=== PATIENT | male | born 1955 | race Caucasian/White ===

== ENCOUNTER 2018-09-18 21:32 | Emergency (ER) | payer OTHER ==
[2018-09-18] MEDS ORDERED: methylPREDNISolone Sodium Succinate 125 MG/2 ML SDV ONE (22:13)
[2018-09-18] MEDS ORDERED: methylPREDNISolone Acetate 80 MG/ML SDV IM ONE (22:21)
--- NOTE | 2018-09-18 22:28 | EDM.PDOC ---
ED HPI GENERAL MEDICAL PROBLEM - General Chief Complaint: General Stated Complaint: lip swelling Time Seen by Provider: 09/18/18 22:15 Source of Information: Reports: Patient History Limitations: Reports: No Limitations - History of Present Illness INITIAL COMMENTS - FREE TEXT/NARRATIVE: Subhash is a 63 year old male who presents to the ED with c/o swelling to his upper lip. He reports first noticed the swelling around 1500 today. Reports it has worsened since then. He reports his lip just feels "tight." Reports he took Benadryl around 1900 and has not noticed any improvement, prompting ED visit. He denies any injury to area. Denies any new foods/drinks/etc. He does report he has been on Amoxicillin for the past ~ 7 days. Has not had issues with Amoxicillin use in the past. Denies any other issues or complaints. Denies any chest pain, shortness of breath, rash. Onset: Today, Sudden Duration: Constant Location: Reports: Face Associated Symptoms: Reports: No Other Symptoms. Denies: Confusion, Chest Pain , Cough, cough w sputum, Diaphoresis, Fever/Chills, Headaches, Loss of Appetite , Malaise, Nausea/Vomiting, Rash, Seizure, Shortness of Breath, Syncope, Weakness - Related Data Allergies Allergy/AdvReac Type Severity Reaction Status Date / Time No Known Allergies Allergy Verified 09/18/18 21:38 Home Meds: Home Meds Lisinopril/Hydrochlorothiazide [Lisinopril-Hctz 10-12.5 mg Tab] 1 tab PO QAM [History] Meloxicam [Mobic] 7.5 mg PO DAILY 09/18/18 [History] Simvastatin [Zocor] 40 mg PO BEDTIME 09/18/18 [History] Past Medical History Cardiovascular History: Reports: High Cholesterol, Hypertension Oncologic (Cancer) History: Reports: Prostate - Past Surgical History Male Surgical History: Reports: Prostatectomy Musculoskeletal Surgical History: Reports: Other (See Below) Other Musculoskeletal Surgeries/Procedures:: rotator cuff Oncologic Surgical History: Reports: None Social & Family History - Family History Family Medical History: Noncontributory - Tobacco Use Smoking Status *Q: Never Smoker Second Hand Smoke Exposure: No - Caffeine Use Caffeine Use: Reports: None - Recreational Drug Use Recreational Drug Use: No ED ROS GENERAL - Review of Systems Review Of Systems: ROS reveals no pertinent complaints other than HPI. ED EXAM, GENERAL - Physical Exam Exam: See Below Exam Limited By: No Limitations General Appearance: Alert, WD/WN, No Apparent Distress Eye Exam: Bilateral Eye: EOMI, PERRL Nose: Normal Inspection, Normal Mucosa, No Blood Throat/Mouth: Normal Teeth, Normal Gums, Normal Oropharynx, Normal Voice, No Airway Compromise, Other (moderate swelling to upper lip) Head: Facial Swelling (mild swelling to upper lip) Neck: Normal Inspection, Supple, Non-Tender, Full Range of Motion Respiratory/Chest: No Respiratory Distress, Lungs Clear, Normal Breath Sounds, No Accessory Muscle Use, Chest Non-Tender Cardiovascular: Normal Peripheral Pulses, Regular Rate, Rhythm, No Edema, No Gallop, No JVD, No Murmur, No Rub Neurological: Alert, Oriented, CN II-XII Intact, Normal Cognition, Normal Gait, Normal Reflexes, No Motor/Sensory Deficits Psychiatric: Normal Affect, Normal Mood Skin Exam: Warm, Dry, Intact, Normal Color, No Rash Lymphatic: No Adenopathy Course - Vital Signs Last Recorded V/S: Last Vital Signs Temp 96.7 F 09/18/18 21:41 Pulse 66 09/18/18 21:41 Resp 18 09/18/18 21:41 BP 168/97 H 09/18/18 21:41 Pulse Ox 96 09/18/18 21:41 - Orders/Labs/Meds Meds: Medications Discontinued Medications Generic Name Dose Route Start Last Admin Trade Name Wilfrido PRN Reason Stop Dose Admin Methylprednisolone Acetate 80 mg 09/18/18 22:21 Depo-Medrol IM 09/18/18 22:22 ONETIME ONE Departure - Departure Time of Disposition: 22:25 Disposition: Home, Self-Care 01 Condition: Good Clinical Impression: Angioedema of lips Qualifiers: Encounter type: initial encounter Qualified Code(s): T78.3XXA - Angioneurotic edema, initial encounter - Discharge Information *PRESCRIPTION DRUG MONITORING PROGRAM REVIEWED*: Not Applicable *COPY OF PRESCRIPTION DRUG MONITORING REPORT IN PATIENT JOSE MIGUEL: Not Applicable Instructions: Angioedema, [id number] Additional Instructions: 1) Benadryl 25-50 mg every 6 hours as needed 2) Zyrtec or Claritin daily 3) Avoid amoxicillin in future 4) Follow up with PCP if symptoms worsen or do not improve 5) Return to ED for any emergent needs
[2018-09-18] MEDS ORDERED: methylPREDNISolone Sodium Succinate 125 MG/2 ML SDV IM SCH (22:30)
== END 2018-09-18 22:35 | disposition home or self-care (01) ==
LOC: CC.ED 21:32
DX: T78.3XXA Angioneurotic edema, initial encounter (principal); E78.00 Pure hypercholesterolemia, unspecified; I10 Essential (primary) hypertension; Z79.899 Other long term (current) drug therapy
CPT/HCPCS: 96372; 99282